=== PATIENT | male | born 1945 | race Caucasian/White ===

== ENCOUNTER 2017-09-23 12:48 | Inpatient (IN) | payer OTHER ==
[~2017-09-23] VITALS: Ht 175.3 cm; Wt 82.5 kg
[2017-09-23 11:40] VITALS: BP 123/57
[~2017-09-23 12:48] MED LIST: DOXYCYCLINE HYC50 MG PO; GLIPIZIDE XL10 MG PO; LEVITRA20 MG PO; LEVOTHYROXINE25 MCG PO; LO-DOSE ASPIRIN81 M2 PO; LOSARTAN POTASS50 MG PO; METFORMIN HCL500 M4 PO; METOPROLOL SUCC50 MG PO; OMEPRAZOLE40 M1 PO
[2017-09-23 13:12] LABS: HEMATOCRIT 40.4 % (38.0-50.0); HEMOGLOBIN 13.9 G/DL (12.5-16.6); MCH 30.9 PG (29.0-34.0); MCHC 34.4 G/DL (30.0-36.0); MCV 89.8 FL (86-99); PLATELET COUNT 89 K/uL (156-360); RBC DIS.WIDTH-CV 14.7 % (11.8-14.6); RBC DIS.WIDTH-SD 48.4 % (39-53); WHITE BLOOD COUNT 1.8 K/uL (4.1-10.2)
[2017-09-23 13:17] LABS: CHLORIDE 99 mEq/L (99-109); POTASSIUM 4.4 mEq/L (3.7-5.4); SODIUM 137 mEq/L (136-147)
[2017-09-23 13:19] LABS: GLUCOSE 162 mg/dL (70-99)
[2017-09-23 13:23] LABS: CREATININE 1.5 mg/dL (0.6-1.3); GFR ESTIMATE (CALCULATED) 49 mL/min/ (58.99-99999); UREA NITROGEN (BUN) 24 mg/dL (9-23)
[2017-09-23 14:31] LABS: ALBUMIN 4.5 g/dL (3.2-4.8)
[2017-09-23 14:34] LABS: TOTAL PROTEIN 7.9 g/dL (6.4-8.3)
[2017-09-23 14:36] LABS: TOTAL BILIRUBIN 1.4 mg/dL (0.0-1.0)
[2017-09-23 14:37] LABS: ALKALINE PHOSPHATASE 81 IU/L (3-129)
[2017-09-23 14:39] LABS: AST (GOT) 162 IU/L (2-34); DIRECT BILIRUBIN 0.5 mg/dL (0.0-0.3)
[2017-09-23 14:40] LABS: ALT (GPT) 104 IU/L (3-49)
[2017-09-23 16:04] LABS: BASOPHIL (%) 0 % (0-1); EOSINOPHIL (%) 0 % (0-5); IMMATURE GRANULOCYTE (%) 1.2 % (0.0-0.7); LYMPHOCYTE (%) 16.5 % (15-42); LYMPHOCYTE COUNT 0.3 K/uL (1.0-2.8); MONOCYTE (%) 7.6 % (3-12); MONOCYTE COUNT 0.1 K/uL (0-0.8); NEUTROPHIL (%) 74.7 % (45-76); NEUTROPHIL COUNT 1.3 K/uL (1.8-6.4)
[2017-09-23 16:15] LABS: APPEARANCE SL.HAZY ((CLEAR)); BILIRUBIN NEGATIVE; BLOOD MODERATE; COLOR YELLOW ((YELLOW)); GLUCOSE (STRIP) >=500; KETONES 20; LEUKOCYTES NEGATIVE; NITRITE NEGATIVE; PROTEIN (STRIP) 100; SPECIFIC GRAVITY 1.038 (1.000-1.030); UROBILINOGEN 0.2 MG/DL (0.2-1.0)
[2017-09-23 16:17] LABS: BACTERIA RARE /HPF; EPITHELIAL CELLS NONE SEEN /HPF; MUCUS TRACE /LPF; RED BLOOD CELLS 0-5 /HPF (0-5); UCUL ADDED? NO; WHITE BLOOD CELLS 0-5 /HPF (0-5)
[2017-09-23] MEDS ORDERED: JARDIANCE10 MG PO (16:34)
[2017-09-23] MEDS ORDERED: LOSARTAN POTAS100 MG PO (16:34)
[2017-09-23] MEDS ORDERED: GLIPIZIDE XL5 MG PO (16:35)
[2017-09-23] MEDS ORDERED: ARTIFICIAL TEAR1510 BOTH EYES (16:51)
[2017-09-23] MEDS ORDERED: RESTORE TEARS30 ML BOTH EYES (16:54)
[2017-09-23 18:20] VITALS: BP 136/63
[2017-09-23 19:48] VITALS: BP 123/57
[2017-09-23 23:40] VITALS: BP 111/83
[2017-09-24 04:15] VITALS: BP 114/56
[2017-09-24 06:32] LABS: HEMATOCRIT 29.9 % (38.0-50.0); MCH 31.2 PG (29.0-34.0); MCHC 34.1 G/DL (30.0-36.0); MCV 91.4 FL (86-99); PLATELET COUNT 73 K/uL (156-360); RBC DIS.WIDTH-CV 14.7 % (11.8-14.6); RBC DIS.WIDTH-SD 48.9 % (39-53)
[2017-09-24 06:33] LABS: HEMOGLOBIN 10.2 G/DL (12.5-16.6); RED BLOOD COUNT 3.27 M/uL (4.00-5.50); WHITE BLOOD COUNT 1.2 K/uL (4.1-10.2)
[2017-09-24 06:55] LABS: CHLORIDE 105 MEQ/L (99-109); CREATININE 1.2 MG/DL (0.6-1.3); GFR ESTIMATE (CALCULATED) > 59 mL/min/ (58.99-99999); POTASSIUM 3.9 MEQ/L (3.7-5.4); SODIUM 138 MEQ/L (136-147); UREA NITROGEN (BUN) 21 mg/dL (9-23)
[2017-09-24 06:56] LABS: GLUCOSE 78 mg/dL (70-99)
[2017-09-24 08:23] VITALS: BP 109/55
[2017-09-24 08:28] LABS: MAGNESIUM 2.1 mg/dl (1.3-2.7)
[2017-09-24 08:58] LABS: ALBUMIN 3.2 G/DL (3.2-4.8); ALKALINE PHOSPHATASE 53 IU/L (3-129); ALT (GPT) 72 IU/L (3-49); AST (GOT) 107 IU/L (2-34); DIRECT BILIRUBIN 0.1 mg/dL (0.0-0.3); TOTAL BILIRUBIN 0.6 MG/DL (0.0-1.0); TOTAL PROTEIN 5.5 G/DL (6.4-8.3)
[2017-09-24 09:19] VITALS: BP 118/60
[2017-09-24 10:11] LABS: HEMOGLOBIN A1c (GLYCOHEMOGLOB) 6.7 % (Below 5.7)
[2017-09-24 12:00] VITALS: BP 139/63
[2017-09-24 15:57] VITALS: BP 124/58
[2017-09-24 23:48] VITALS: BP 108/57
[2017-09-25 06:58] LABS: BASOPHIL (%) 0 % (0-1); EOSINOPHIL (%) 0 % (0-5); HEMATOCRIT 29.7 % (38.0-50.0); HEMOGLOBIN 10.1 G/DL (12.5-16.6); IRON 83 MCG/DL (35-150); LYMPHOCYTE (%) 37.3 % (15-42); LYMPHOCYTE COUNT 0.4 K/uL (1.0-2.8); MCH 30.8 PG (29.0-34.0); MCV 90.5 FL (86-99); MONOCYTE (%) 9.8 % (3-12); MONOCYTE COUNT 0.1 K/uL (0-0.8); NEUTROPHIL (%) 51.9 % (45-76); NEUTROPHIL COUNT 0.5 K/uL (1.8-6.4); PLATELET COUNT 84 K/uL (156-360); RBC DIS.WIDTH-CV 14.6 % (11.8-14.6); RBC DIS.WIDTH-SD 48.3 % (39-53); RED BLOOD COUNT 3.28 M/uL (4.00-5.50); TRANSFERRIN (TIBC) 222.4 mg/dL (215-380); TRANSFERRIN SATUR. 37 % (20-55)
[2017-09-25 07:00] VITALS: BP 128/58
[2017-09-25 08:03] LABS: THYROTROPIN (TSH) 0.52 MIU/L (0.4-5.5)
[2017-09-25 08:08] LABS: FERRITIN 186 NG/ML (22-322)
[2017-09-25 08:22] LABS: FOLIC ACID (FOLATE) > 22.0 NG/ML (5.0-22.0)
[2017-09-25 11:24] VITALS: BP 124/62
[2017-09-25 16:10] VITALS: BP 120/53
[2017-09-25 23:21] VITALS: BP 92/40
[2017-09-26 00:04] LABS: HEMATOCRIT 28.6 % (38.0-50.0); HEMOGLOBIN 10.1 G/DL (12.5-16.6); MCH 31.9 PG (29.0-34.0); MCHC 35.3 G/DL (30.0-36.0); MCV 90.2 FL (86-99); PLATELET COUNT 98 K/uL (156-360); RBC DIS.WIDTH-CV 14.6 % (11.8-14.6); RBC DIS.WIDTH-SD 48.2 % (39-53); RED BLOOD COUNT 3.17 M/uL (4.00-5.50)
[2017-09-26 00:13] LABS: WHITE BLOOD COUNT 1.4 K/uL (4.1-10.2)
[2017-09-26 03:41] VITALS: BP 126/59
[2017-09-26 06:30] LABS: HEMATOCRIT 30.7 % (38.0-50.0); HEMOGLOBIN 10.3 G/DL (12.5-16.6); MCH 30.4 PG (29.0-34.0); MCHC 33.6 G/DL (30.0-36.0); MCV 90.6 FL (86-99); PLATELET COUNT 89 K/uL (156-360); RBC DIS.WIDTH-CV 14.6 % (11.8-14.6); RBC DIS.WIDTH-SD 48.7 % (39-53); RED BLOOD COUNT 3.39 M/uL (4.00-5.50); WHITE BLOOD COUNT 3.1 K/uL (4.1-10.2)
[2017-09-26 06:56] LABS: CHLORIDE 108 MEQ/L (99-109); CREATININE 1.1 MG/DL (0.6-1.3); GFR ESTIMATE (CALCULATED) > 59 mL/min/ (58.99-99999); POTASSIUM 4.3 MEQ/L (3.7-5.4); SODIUM 142 MEQ/L (136-147); UREA NITROGEN (BUN) 16 mg/dL (9-23)
[2017-09-26 06:57] LABS: GLUCOSE 129 mg/dL (70-99)
[2017-09-26 07:30] VITALS: BP 119/59
[2017-09-26] MEDS ORDERED: GRANIX480 MCG/0. SC (10:04)
[2017-09-26 11:10] VITALS: BP 132/60
== END 2017-09-26 16:22 | disposition home or self-care (01) | DRG 872 ==
LOC: EME 12:48 → EDOF 16:25 → 5EAST 16:25 → ENRESERV 16:26 → 5EAST 18:11
PROVIDERS: Anesthesiology; Emergency Medicine; Hospitalist; Physician Assistant
DX: A41.9 Sepsis, unspecified organism (principal); I25.10 Atherosclerotic heart disease of native coronary artery without angina pectoris; R65.20 Severe sepsis without septic shock; E11.9 Type 2 diabetes mellitus without complications; F17.200 Nicotine dependence, unspecified, uncomplicated; R09.81 Nasal congestion; I10 Essential (primary) hypertension; R05 Cough; D69.6 Thrombocytopenia, unspecified; H04.123 Dry eye syndrome of bilateral lacrimal glands; D72.819 Decreased white blood cell count, unspecified; R35.0 Frequency of micturition; D61.818 Other pancytopenia; E87.2 Acidosis; Z95.1 Presence of aortocoronary bypass graft; Z85.038 Personal history of other malignant neoplasm of large intestine; Z92.21 Personal history of antineoplastic chemotherapy; Z79.82 Long term (current) use of aspirin; Z95.5 Presence of coronary angioplasty implant and graft; Z83.3 Family history of diabetes mellitus; Z82.49 Family history of ischemic heart disease and other diseases of the circulatory system; Z90.49 Acquired absence of other specified parts of digestive tract; Z79.899 Other long term (current) drug therapy
CPT/HCPCS: 71046; 74176; 80048; 80076; 81003; 82607; 82728; 82746; 82948; 83036; 83540; 83605; 83735; 84443; 84466; 85025; 85027; 87040; 87502; 99281; 99285; J1447; J1644; J1815; J1956; J2543; J3370; J3475; J7030; J7120